=== PATIENT | female | born 1955 | race Caucasian/White ===

== ENCOUNTER → 2017-04-21 10:38 | Outpatient (CLI) | payer MEDICAID, SELFPAY ==
[2017-04-21 16:16] VITALS: BP 117/68; PULSE 88; RESP 18; TEMP 37.6; O2SAT 99; BMI 37.5
[2017-04-21 17:17] LABS: Hemoglobin 11.6 g/dl (12.0-15.0); Mean Corp Hgb Conc 33.1 g/gl (32-36); Mean Corpuscular Hgb 31.6 pg (27.0-32.0); Mean Corpuscular Volume 95.4 fL (81-99); Mean Platelet Vol. 11.3 fl (6.2-12.0); Platelet Count 87 K/mm3 (150-450); RBC Distribution Width CV 14.9 % (11.6-14.6); RBC Distribution Width SD 51.9 fl (35.1-43.9); Red Blood Count 3.67 M/mm3 (4.2-5.4); Scan Indicated on CBC? Y/N NO; White Blood Count 3.2 K/mm3 (4.4-11.0)
[2017-04-21 17:35] LABS: International Normalized Ratio 1.4; Prothrombin Time (Protime)PT. 16.3 SECONDS (11.7-14.9)
[2017-04-21 17:36] LABS: Partial Thromboplast Time 39.4 Seconds (24.1-36.2)
[2017-04-21 17:50] LABS: Anion Gap 10 (5-15); BUN 22 mg/dL (7-18); BUN/Creat Ratio 13.2 RATIO (10-20); Chloride 104 mmol/L (98-107); Creatinine, Serum 1.67 mg/dL (0.55-1.02); EST Glomerular Filtration Rate 33 mL/min (>60); Est Glom Filt Rate - Afr Amer 40 mL/min (>60); Estimated Creatinine Clearance 31.32 ml/min; Glucose 98 mg/dL (70-110); Magnesium 2.4 mg/dL (1.8-2.4); Phosphorus 2.5 mg/dL (2.5-4.9); Sodium Level 137 mmol/L (136-145); Thyroid Stim Hormone (TSH) 0.55 uIU/mL (0.358-3.74)
--- NOTE | 2017-05-01 12:19 | CASEMGMT ---
Social Work Placed call to the pt to discuss the discharge planning. Introduced self and role at [facility]. The pt reports that she lives with her son and some renters and will be well taken care of her. Her surgery has been rescheduled for 06/08/17. She intends on returning home at discharge with [facility] from [place] for the first 3-4 weeks and then once she is appropriate for outpatient therapy she will do this at [facility] and does claim to have transportation established. SHANTAL CM to f/u with pt post-operatively. Plan: [facility] for SN, PT and OT. Deedee Mann, [employer]FORMER REPAIRER
== END ==
PROVIDERS: Visit Provider Orthopaedic Surgery
DX: Z01.818 Encounter for other preprocedural examination (principal)
CPT/HCPCS: 36415; 80048; 83735; 84100; 84443; 85027; 85610; 85730; 87081